=== PATIENT | female | born 1990 | race Caucasian/White ===

== ENCOUNTER 2016-10-11 14:03 | Inpatient (IN) | payer OTHER ==
[2016-10-11] VITALS (9 sets, daily range): BP systolic 105–129; BP diastolic 55–72
[~2016-10-11] VITALS: Ht 165.1 cm; Wt 129.2 kg
[~2016-10-11 14:03] MED LIST: BENTYL10 MG PO; CIPRO500 MG PO; ENDOCET 5-3251 EACH PO; FLAGYL500 MG PO; IBUPROFEN800 MG PO; MEDROL DOSEPAK4 MG PO; Motrin PO; NOHOMEMEDS; PRENATAL TABLE1 EACH PO; PROMETHAZINE HC25 M1 PO; Percocet 5/325,Endoc PO; TYLENOL EXTRA500 MG PO; VENTOLIN HFA18 GM IH; ZANTAC150 MG PO
[2016-10-11 14:37] LABS: HEMATOCRIT 33.2 % (36.0-46.0); MCH 25.1 PG (29.0-34.0); MCHC 31.9 G/DL (30.0-36.0); MCV 78.5 FL (83-99); PLATELET COUNT 194 K/uL (156-360); RBC DIS.WIDTH-CV 16.1 % (11.8-14.6); RBC DIS.WIDTH-SD 45.9 % (39-53); RED BLOOD COUNT 4.23 M/uL (3.80-5.20)
[2016-10-11 15:06] LABS: EOSINOPHIL (%) 0.2 % (0-5); IMMATURE GRANULOCYTE (%) 0.2 % (0.0-0.7); LYMPHOCYTE COUNT 1.9 K/uL (1.0-2.8); MONOCYTE (%) 5.4 % (3-12); MONOCYTE COUNT 0.6 K/uL (0-0.8); NEUTROPHIL (%) 76.5 % (45-76); NEUTROPHIL COUNT 8.4 K/uL (1.8-6.4)
[2016-10-12] VITALS (12 sets, daily range): BP systolic 113–135; BP diastolic 56–75
[2016-10-12] MEDS ORDERED: MOTRIN800 MG PO (05:37)
[2016-10-13 08:02] VITALS: BP 120/66
[2016-10-13 15:40] VITALS: BP 123/72
[2016-10-13 23:30] VITALS: BP 118/60
[2016-10-14 07:51] VITALS: BP 116/57
[2016-10-14] MEDS ORDERED: MOTRIN800 MG PO (10:50)
== END 2016-10-14 12:58 | disposition home or self-care (01) | DRG 775 ==
LOC: LDRP-OP 14:03 → 2WEST 14:04 → LDRP-OP 11-02 16:46
PROVIDERS: Nurse Practitioner
PROC: 3E0P7GC Introduction of Other Therapeutic Substance into Female Reproductive, Via Natural or Artificial Opening (ICD-10-PCS; principal; 2016-10-11)
PROC: 10E0XZZ Delivery of Products of Conception, External Approach (ICD-10-PCS; 2016-10-12)
PROC: 3E0S3CZ (ICD-10-PCS; 2016-10-12)
PROC: 00HU33Z Insertion of Infusion Device into Spinal Canal, Percutaneous Approach (ICD-10-PCS; 2016-10-12)
DX: O62.3 Precipitate labor (principal); O41.03X0 Oligohydramnios, third trimester, not applicable or unspecified; O48.0 Post-term pregnancy; O99.02 Anemia complicating childbirth; D64.9 Anemia, unspecified; O99.214 Obesity complicating childbirth; E66.01 Morbid (severe) obesity due to excess calories; Z3A.41 41 weeks gestation of pregnancy; Z37.0 Single live birth
CPT/HCPCS: 85025; C1755; G0378; J7120

== ENCOUNTER 2017-11-29 12:00 | Emergency (ER) | payer OTHER ==
[~2017-11-29] VITALS: Ht 165.1 cm; Wt 123.6 kg
[~2017-11-29 12:00] MED LIST changes: +MOTRIN800 MG PO
[2017-11-29 12:48] LABS: HEMATOCRIT 43.4 % (36.0-46.0); HEMOGLOBIN 14.4 G/DL (11.9-15.5); MCH 25.4 PG (29.0-34.0); MCHC 33.2 G/DL (30.0-36.0); MCV 76.7 FL (83-99); PLATELET COUNT 227 K/uL (156-360); RBC DIS.WIDTH-SD 41.5 % (39-53); RED BLOOD COUNT 5.66 M/uL (3.80-5.20); WHITE BLOOD COUNT 6.4 K/uL (4.1-10.2)
[2017-11-29 12:55] LABS: ALBUMIN 4.4 g/dL (3.2-4.8); CHLORIDE 101 mEq/L (99-109); POTASSIUM 3.2 mEq/L (3.7-5.4); SODIUM 136 mEq/L (136-147)
[2017-11-29 12:58] LABS: GLUCOSE 90 mg/dL (70-99); TOTAL PROTEIN 7.9 g/dL (6.4-8.3)
[2017-11-29 13:00] LABS: TOTAL BILIRUBIN 1.1 mg/dL (0.0-1.0)
[2017-11-29 13:01] LABS: ALKALINE PHOSPHATASE 79 IU/L (3-129); CREATININE 0.8 mg/dL (0.6-1.3); GFR ESTIMATE (CALCULATED) > 59 mL/min/
[2017-11-29 13:02] LABS: UREA NITROGEN (BUN) 12 mg/dL (9-23)
[2017-11-29 13:03] LABS: AST (GOT) 36 IU/L (2-34)
[2017-11-29 13:04] LABS: ALT (GPT) 40 IU/L (3-49)
[2017-11-29 13:05] LABS: LIPASE 23 U/L (1.0-51.0)
[2017-11-29 13:10] LABS: QUANTITATIVE HCG < 4.0 MIU/ML
[2017-11-29 13:31] LABS: APPEARANCE CLEAR ((CLEAR)); BILIRUBIN NEGATIVE; BLOOD NEGATIVE; COLOR YELLOW ((YELLOW)); GLUCOSE (STRIP) NEGATIVE; KETONES 20; LEUKOCYTES NEGATIVE; NITRITE NEGATIVE; PROTEIN (STRIP) 30; SPECIFIC GRAVITY 1.027 (1.000-1.030); UCUL ADDED? NO; UROBILINOGEN 0.2 MG/DL (0.2-1.0)
[2017-11-29 14:30] LABS: C DIFF TOXIN NEGATIVE (NEGATIVE)
[2017-11-29] MEDS ORDERED: ZOFRAN ODT4 MG PO (15:48)
[2017-11-29] MEDS ORDERED: BENTYL10 MG PO (15:49)
[2017-11-29 16:33] VITALS: BP 137/89
== END 2017-11-29 16:59 | disposition home or self-care (01) ==
LOC: EME 12:00
PROVIDERS: Physician Assistant
DX: R10.10 Upper abdominal pain, unspecified (principal); R19.7 Diarrhea, unspecified; R11.2 Nausea with vomiting, unspecified
CPT/HCPCS: 76705; 80053; 81003; 83690; 84702; 85027; 87493; 99281; 99284; J2405; J7030